=== PATIENT | female | born 2000 | race African-American/Black ===

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

== ENCOUNTER 2021-07-26 07:46 | Emergency (ER) | payer OTHER ==
[~2021-07-26] VITALS: Ht 162.6 cm; Wt 81.8 kg
[2021-07-26] MEDS ORDERED: NAPR-1197 PO (07:53)
[2021-07-26] MEDS ORDERED: ACET-3207 PO (07:53)
[2021-07-26] MEDS ORDERED: BACLOFEN 10 MG TABLET PO ONE (09:15)
[2021-07-26 10:39] VITALS: BP 119/76
== END 2021-07-26 10:40 | disposition home or self-care (01) ==
LOC: EMS 07:51
DX: S39.012A Strain of muscle, fascia and tendon of lower back, initial encounter (principal); S30.0XXA Contusion of lower back and pelvis, initial encounter; F12.90 Cannabis use, unspecified, uncomplicated; Z79.899 Other long term (current) drug therapy; W01.198A Fall on same level from slipping, tripping and stumbling with subsequent striking against other object, initial encounter; Y93.89 Activity, other specified; Y92.89 Other specified places as the place of occurrence of the external cause; Y99.0 Civilian activity done for income or pay
CPT/HCPCS: 72170; 99283

== ENCOUNTER 2024-07-09 08:11 | Emergency (ER) | payer OTHER ==
[~2024-07-09] VITALS: Ht 167.6 cm; Wt 90.0 kg
[~2024-07-09 08:11] MED LIST: ACET-3207 PO; NAPR-1197 PO
[2024-07-09 08:33] VITALS: BP 115/73; PULSE 70; RESP 18; TEMP 98.2
== END 2024-07-09 12:07 | disposition left against medical advice (07) ==
LOC: EMS 08:11
DX: M54.2 Cervicalgia (principal); Z53.21 Procedure and treatment not carried out due to patient leaving prior to being seen by health care provider

== ENCOUNTER 2024-10-11 03:55 | Emergency (ER) | payer OTHER ==
[~2024-10-11] VITALS: Ht 162.6 cm; Wt 86.4 kg
[2024-10-11 03:59] VITALS: BP 130/61; PULSE 80; RESP 16; TEMP 98.7; O2SAT 97
== END 2024-10-11 05:03 | disposition left against medical advice (07) ==
LOC: EMS 03:56
DX: R04.0 Epistaxis (principal); Z53.21 Procedure and treatment not carried out due to patient leaving prior to being seen by health care provider